=== PATIENT | female | born 1975 | race Caucasian/White ===

== ENCOUNTER → 2018-07-09 | Outpatient (CLI) | payer MEDICARE, MEDICAID ==
[~2018-07-09] MED LIST: DARV100T; EFFE150C; KLON1TAB; LITH300T2; TRAZ100T
--- NOTE | 2018-07-09 17:40 | REP ---
Clinical: Contusion. Technique: AP and lateral views of the left tibia / fibula. Findings: No acute fracture dislocation. No soft tissue swelling. No subcutaneous emphysema or radiodense foreign body. Impression: Normal left tibia / fibula x-rays. Electronically Signed by Rigoberto Wilson MD 07/09/2018 05:32 P
== END ==
LOC: M ADAMS 17:22
PROVIDERS: ATTEND Physician Assistant Medical
DX: S80.12XA Contusion of left lower leg, initial encounter (principal); X58.XXXA Exposure to other specified factors, initial encounter; Y92.9 Unspecified place or not applicable

== ENCOUNTER → 2020-08-08 | Outpatient (CLI) | payer MEDICARE, MEDICAID ==
--- NOTE | 2020-08-08 09:01 | REP ---
INDICATION: HEARTBURN, VOMITING, STOMACH CRAMPS. COMPARISON: None. TECHNIQUE/RADIOTRACER AND DOSE: 1.03 mCi of Technetium-99m sulfur colloid was ingested in two scrambled eggs and 6 ounces of water and sequential anterior and posterior images are acquired. 89 minutes imaging interval is required for the study. However, after the 18 minutes image, the patient was unable to continue with the exam due to back and abdominal pain and requested that it be terminated. FINDINGS: Study is incomplete. The patient was unable to tolerate supine position long enough to acquire the data.. IMPRESSION: Incomplete study.. <Electronically signed by Figueroa Baum > 08/08/20 0817
== END ==
LOC: M RAD 06:57
PROVIDERS: ATTEND Internal Medicine Gastroenterology
DX: R12 Heartburn (principal); R10.9 Unspecified abdominal pain; R11.11 Vomiting without nausea
CPT/HCPCS: 78264; A9541

== ENCOUNTER 2023-03-19 01:04 | Inpatient (IN) | payer MEDICARE, MEDICAID ==
[~2023-03-19] VITALS: Ht 162.6 cm; Wt 71.0 kg
[2023-03-19 01:47] LABS: HEMATOCRIT 41.6 % (36.0-47.0); MEAN CORPUSCULAR HEMOGLOBIN 30.2 pg (27.0-33.0); MEAN CORPUSCULAR HGB CONC 33.7 g/dl (32.0-36.5); MEAN CORPUSCULAR VOLUME 89.8 fl (80.0-96.0); PLATELET COUNT, AUTOMATED 383 10^3/uL (150-450); RED BLOOD COUNT 4.63 10^6/uL (4.00-5.40); WHITE BLOOD COUNT 12.8 10^3/uL (4.0-10.0)
[2023-03-19 02:10] LABS: BARBITURATES URINE NEGATIVE (NEGATIVE); BENZODIAZEPINES URINE NEGATIVE (NEGATIVE); CANNABINOIDS URINE NEGATIVE (NEGATIVE); COCAINE METABOLITE URINE NEGATIVE (NEGATIVE); METHADONE URINE NEGATIVE (NEGATIVE); OPIATES URINE NEGATIVE (NEGATIVE); PHENCYCLIDINE URINE NEGATIVE (NEGATIVE)
[2023-03-19 02:12] LABS: ETHYL ALCOHOL (ETHANOL) < 0.003 % (0.000-0.010)
[2023-03-19 02:14] LABS: ALBUMIN 3.9 G/DL (3.2-5.2); ALKALINE PHOSPHATASE 102 U/L (46-116); ALT/SGPT < 9 U/L (7.0-40); AST/SGOT 18 U/L (<34); BILIRUBIN,DIRECT 0.1 MG/DL (<0.4); BILIRUBIN,TOTAL 0.4 MG/DL (0.3-1.2); BLOOD UREA NITROGEN 17 MG/DL (9-23); CALCIUM LEVEL 9.7 MG/DL (8.5-10.1); CARBON DIOXIDE LEVEL 24 MMOL/L (20-31); CHLORIDE LEVEL 102 MMOL/L (98-107); CREATININE FOR GFR 0.88 MG/DL (0.55-1.30); GLOMERULAR FILTRATION RATE > 60.0 (>58); GLUCOSE, FASTING 115 MG/DL (60-100); POTASSIUM SERUM 4.1 MMOL/L (3.5-5.1); SALICYLATE LEVEL < 3.0 MG/DL (<30); SODIUM LEVEL 134 MMOL/L (136-145); TOTAL PROTEIN 7.2 G/DL (5.7-8.2)
[2023-03-19 02:16] LABS: THYROID STIMULATING HORMONE 0.465 uIU/ML (0.55-4.78)
[2023-03-19 02:35] LABS: AMPHETAMINES LEVEL URINE POSITIVE (NEGATIVE)
[2023-03-19] MEDS ORDERED: HOME MED LIST COMPLETE! XX SCH (05:20)
[2023-03-19] MEDS ORDERED: MOM 30ML SUSPENSION UDC PO PRN (06:50)
[2023-03-19] MEDS ORDERED: ACETAMINOPHEN TAB 650MG DOSE (2X325MG) PO PRN (06:50)
[2023-03-19] MEDS ORDERED: IBUPROFEN 400MG TAB PO PRN (06:50)
[2023-03-19] MEDS ORDERED: traZODone 50 MG TAB PO PRN (06:50)
[2023-03-19] MEDS ORDERED: diphenhydrAMINE 25MG CAP PO PRN (06:50)
[2023-03-19] MEDS ORDERED: OLANZapine 5 MG TAB PO PRN (06:50)
[2023-03-19] MEDS: NICOTINE 21MG/24HR 1 EA TRANSDERMAL TD SCH (07:21)
[2023-03-19 14:27] VITALS: BP 131/68; TEMP 97.5; O2SAT 100
[2023-03-20 06:44] VITALS: BP 143/71; TEMP 97.3; O2SAT 99
[2023-03-20 16:29] VITALS: BP 122/71; TEMP 98; O2SAT 100
[2023-03-21 06:28] VITALS: BP 122/57; TEMP 96.8; O2SAT 100
[2023-03-21 08:48] VITALS: BP 122/57; TEMP 96.8; O2SAT 100
[2023-03-21 15:24] VITALS: BP 109/65; TEMP 98; O2SAT 99
[2023-03-22 06:25] VITALS: BP 114/70; TEMP 97.8; O2SAT 99
[2023-03-22] MEDS: MAALOX 30 ML SUSP *UDC PO PRN (08:19)
== END 2023-03-22 14:00 | disposition home or self-care (01) | DRG 882 ==
LOC: M ED 01:04 → EEVIPCON 06:49 → M ED INP 06:49 → M PSY 13:37
PROVIDERS: ADMIT Student in an Organized Health Care Education/Training Program; ATTEND Student in an Organized Health Care Education/Training Program
DX: F43.22 Adjustment disorder with anxiety (principal); R45.851 Suicidal ideations; Z91.040 Latex allergy status; Z88.6 Allergy status to analgesic agent; F43.10 Post-traumatic stress disorder, unspecified; G47.00 Insomnia, unspecified; G43.909 Migraine, unspecified, not intractable, without status migrainosus; F12.90 Cannabis use, unspecified, uncomplicated; F15.90 Other stimulant use, unspecified, uncomplicated